=== PATIENT | female | born 1990 | race Caucasian/White ===

== ENCOUNTER 2019-01-06 13:26 | Emergency (ER) | payer MEDICAID ==
[~2019-01-06] VITALS: Ht 162.6 cm; Wt 85.0 kg
[2019-01-06] MEDS ORDERED: ALPRAZOLAM 0.5 MG TABLET PO ONE (19:00)
[2019-01-06 22:24] VITALS: BP 124/70
== END 2019-01-06 22:30 | disposition home or self-care (01) ==
LOC: ER 13:26
DX: F41.9 Anxiety disorder, unspecified (principal); R07.89 Other chest pain; R42 Dizziness and giddiness; R06.02 Shortness of breath
CPT/HCPCS: 93005; 99283